=== PATIENT | male | born 1945 | race Asian ===

== ENCOUNTER → 2017-09-09 | Day surgery (SDC) | payer OTHER ==
[~2017-09-09] MED LIST: ASPIRIN 81 MG CHEWABLE TAB PO ONE; ATROPINE SULFATE 1 MG/10 ML SYR IVP ONE; DABIGATRAN ETEXILATE MESYL 150 MG CAP PO SCH; LIDOCAINE 1% 5 ML SDV ONE; NS 1,000 ML IV ONE; NS 500 ML IV ONE; PROPOFOL 200 MG/20 ML VIAL ONE
--- NOTE | 2017-09-09 11:12 | CPEKG ---
Heart Rate: 113 RR Interval: 531 P-R Interval: 136 QRSD Interval: 116 QT Interval: 368 QTC Interval: 505 P [place]: 114 QRS [place]: -62 T Wave [place]: 64 EKG Severity - ABNORMAL ECG - EKG Impression: SINUS TACHYCARDIA EKG Impression: VENTRICULAR PREMATURE COMPLEX EKG Impression: NONSPECIFIC IVCD WITH LAD EKG Impression: INFERIOR INFARCT, OLD Electronically Signed By: Karthikeyan Smith 09-Sep-2017 15:24:41
[2017-09-09 11:25] LABS: % IMMATURE GRANULYOCYTES 0.1 % (0.0-1.1); ABSOLUTE IMMATURE GRANULOCYTES 0.01 10^3/uL (0.00-0.10); ADD DIFF? NO; ADD MORPH? NO; ADD SCAN? NO; ATYPICAL LYMPHOCYTE FLAG 0 (0-99); FRAGMENT RBC FLAG 0 (0-99); HEMATOCRIT 48.1 % (40.0-51.0); HEMOGLOBIN 17.4 g/dL (13.7-17.5); LEFT SHIFT FLG 0 (0-99); LIPEMIA HEMOLYSIS FLAG 90 (0-99); MEAN CELL HEMOGLOBIN 31.6 pg (27.9-34.1); MEAN CELL HEMOGLOBIN CONCENTR. 36.2 g/dL (32.4-36.7); MEAN CELL VOLUME 87.5 fL (81.5-99.8); MEAN PLATELET VOLUME 10.2 fL (8.7-11.7); PLATELET CLUMPS FLAG 0 (0-99); PLATELET COUNT 192 10^3/uL (150-400); RED CELL DISTRIBUTION WIDTH 12.8 % (11.5-15.2)
[2017-09-09 11:44] LABS: INR 1.13 (0.83-1.16); PROTIME(PATIENT) 14.4 SEC (12.0-15.0)
[2017-09-09 11:45] LABS: APTT 39.4 SEC (23.0-38.0)
[2017-09-09 12:04] LABS: ANION GAP 15 mEq/L (8-16); CALCIUM 10.1 mg/dL (8.5-10.4); CARBON DIOXIDE 20 mEq/l (22-31); CHLORIDE 103 mEq/L (97-110); CREATININE 1.2 mg/dL (0.7-1.3); GLOMERULAR FILTRATION RATE 59; GLUCOSE 94 mg/dL (70-100); POTASSIUM 4.2 mEq/L (3.5-5.2); SODIUM 138 mEq/L (134-144)
[2017-09-09 12:15] LABS: CREATINE KINASE-MB FRACTION 1.41 ng/mL (0.00-3.19); TROPONIN I 0.018 ng/mL (0.000-0.034)
--- NOTE | 2017-09-09 12:42 | CPEKG ---
Heart Rate: 107 RR Interval: 561 P-R Interval: 204 QRSD Interval: 94 QT Interval: 356 QTC Interval: 475 P [place]: 252 QRS [place]: -13 T Wave [place]: -41 EKG Severity - ABNORMAL ECG - EKG Impression: SINUS OR ECTOPIC ATRIAL TACHYCARDIA EKG Impression: MULTIPLE VENTRICULAR PREMATURE COMPLEXES EKG Impression: PROBABLE POSTERIOR INFARCT EKG Impression: REPOL ABNRM SUGGESTS ISCHEMIA, DIFFUSE LEADS Electronically Signed By: Karthikeyan Smith 09-Sep-2017 15:24:41
--- NOTE | 2017-09-09 12:51 | EDPHY ---
H & P Time Seen by Provider: 09/09/17 11:13 HPI/ROS: HPI Palpitations. 72-year-old male by private vehicle. He comes from the office of his coating inspector, Dr. Alonso Torres, with a history of intermittent atrial flutter and the need for cardioversion. I did not speak with Dr. Torres or his staff. The patient tells me he was sent here for cardioversion. He reports that he took 1 Pradaxa tablet last night. He reports that he has been in atrial flutter since 5:30 p.m. yesterday. He reports that his coating inspector Dr. Rey has prescribed him prn Pradaxa to be taken when he goes into flutter. He is not on consistent anticoagulation. He denies any associated chest pain or shortness of breath. He describes feeling his heart beating fast. ROS: Constitutional: No fever, no chills. No weakness. Eyes: No discharge. No changes in vision. ENT: No sore throat. No nasal congestion or rhinorrhea. Respiratory: No cough. No shortness of breath. Cardiac: No chest pain, As above. Gastrointestinal: No abdominal pain, no vomiting, no diarrhea. Genitourinary: No hematuria. No dysuria or increased frequency with urination. Musculoskeletal: No back pain. No neck pain. No myalgias or arthralgias. Skin: No rashes. Neurological: No headache. No focal weakness or altered sensation. Past medical history: Atrial flutter. As above. Social history: Nonsmoker. Here with his daughter. No alcohol. Physical Exam: General Appearance: Alert, no distress. This patient is responding to questions appropriately and in full sentences. This patient appears well- hydrated and well-nourished. Eyes: Pupils equal and round no pallor or injection. No lid edema, erythema or injection. Respiratory: There are no retractions, lungs are clear to auscultation with good air movement bilaterally. Cardiovascular: Regular rate and rhythm. Regular mild tachycardia. No murmur appreciated. Neurological: Motor sensory function is grossly intact. Cranial nerves are normal. Gait is normal. Skin: Warm and dry, no rashes. Musculoskeletal: Neck is supple and nontender. Extremities are symmetrical. All joints range without pain or impingement. Psychiatric: No agitation. No depression. Database: EKG: EKG 1. Time 11:10 a.m.: Significant for a sinus tachycardia versus atrial flutter versus ectopic atrial tachycardia. Ventricular rate of 113. There is a nonspecific interventricular conduction delay. Left axis deviation noted. EKG 2. Time 12:40 p.m. p.m.: As above. Multiple PVCs. Ventricular rate of 107. Imaging: Procedures: Emergency department course: Vital signs reviewed. Patient very adamant that he be cardioverting the emergency department. He is angry that there was no communication from Dr. Torres 's office and is demanding to be cardio averted now in the emergency department. I explained to him that I wanted to get a trans esophageal echocardiogram before I considered cardioversion. I spoke with coating inspector Dr. Eleonora Vaughn. She graciously saw this patient in our emergency department. She will admit this patient for transesophageal echocardiogram followed by cardioversion. The patient's remaining emergency department course under my care has been uneventful. He was admitted for the noted procedures under the care of Dr. Eleonora Vaughn in stable condition. Differential Diagnosis: The differential diagnosis on this patient includes but is not limited to atrial flutter versus sinus tachycardia versus ectopic atrial tachycardia. Pulmonary embolism, acute coronary syndrome, hyperthyroid unlikely. This represents a partial list of diagnoses considered. These considerations are based on history, physical exam, past history, reassessment and diagnostic testing. Smoking Status: Never smoked Constitutional: Initial Vital Signs Temperature (C) 36.8 C 09/09/17 10:56 Heart Rate 114 H 09/09/17 10:56 Respiratory Rate 18 09/09/17 10:56 Blood Pressure 126/99 H 09/09/17 10:56 O2 Sat (%) 94 09/09/17 10:56 O2 Delivery Mode Room Air Allergies/Adverse Reactions: No Known Allergies Allergy (Verified 09/09/17 10:55) Home Medications: Medication Instructions Recorded Aspirin [Aspirin 81mg (*)] 81 mg PO DAILY 30 Days #30 tab 09/09/17 Dabigatran Etexilate Mesyl 150 mg PO BID #60 09/09/17 [Pradaxa 150 MG (*)] Rosuvastatin Calcium [Crestor 40mg 40 mg PO 09/09/17 (*)] VITAMIN D 1,000 units PO BID 09/09/17 Medical Decision Making - Data Points Laboratory Results: Laboratory Results 09/09/17 11:12 09/09/17 11:12 Medications Given: Discontinued Medications Aspirin (Aspirin) 324 mg PO EDNOW ONE Stop: 09/09/17 11:15 Last Admin: 09/09/17 11:28 Dose: Not Given Sodium Chloride (Ns) 500 mls @ 1,000 mls/hr IV EDNOW ONE PRN Reason: Protocol Stop: 09/09/17 11:43 Last Admin: 09/09/17 11:26 Dose: 500 mls Departure - Departure Disposition: To OP Cath/Surgery Clinical Impression: Atrial flutter Condition: Good
[2017-09-09 13:11] VITALS: TEMP 98.6
[2017-09-09 13:35] VITALS: PULSE 109; O2SAT 95
[2017-09-09 13:51] VITALS: BP 126/101; RESP 18
--- NOTE | 2017-09-09 13:58 | PDHPUP ---
History & Physical Update H&P update statement: This history and physical update is based on an assessment of the patient which was completed after admission or registration (within 24 hours), but prior to the surgery/procedure. H&P update: H&P reviewed & patient examined, no change in patient's condition since H&P completed
--- NOTE | 2017-09-09 16:38 | PDANEPAE ---
ANE History of Present Illness A-fib ANE Past Medical History - Pulmonary History Hx Sleep Apnea: No ANE Review of Systems Review of Systems: ANE Patient History - Allergies Allergies/Adverse Reactions: No Known Allergies Allergy (Verified 09/09/17 10:55) - Home Medications Home medications: home medication list seen and reviewed Home Medications: Aspirin [Aspirin 325 mg (*)] 325 mg PO DAILY 09/09/17 [Last Taken 09/09/17 06:00 ] Dabigatran Etexilate Mesyl [Pradaxa 150 MG (*)] 150 mg PO PRN 09/09/17 [Last Taken 09/09/17 06:00] Rosuvastatin Calcium [Crestor 40mg (*)] 40 mg PO 09/09/17 [Last Taken 09/08/17 18:00] VITAMIN D 1,000 units PO BID 09/09/17 [Last Taken 09/08/17 18:00] - Smoking Hx Smoking Status: Never smoked ANE Labs/Vital Signs - Labs Result Diagrams: 09/09/17 11:12 09/09/17 11:12 - Vital Signs Blood Pressure: 126/101 Heart Rate: 109 Respiratory Rate: 18 O2 Sat (%): 95 Height: 177.8 cm Weight: 81.647 kg ANE Physical Exam - Airway Neck exam: FROM Mallampati Score: Class 2 Mouth exam: normal dental/mouth exam - Pulmonary Pulmonary: no respiratory distress - Cardiovascular Cardiovascular: irregularly irregular - ASA Status ASA Status: III ANE Anesthesia Plan Anesthesia Plan: MAC
--- NOTE | 2017-09-09 17:03 | PDTEE1 ---
CHRISTINE Cardioversion Procedure Procedure: electrical cardioversion, transesophageal echo Indications: other (atrial flutter) Procedural Details: Pads were placed in anterior-posterior position. CHRISTINE probe was advanced and standard images obtained. There is no evidence of left atrial or left atrial appendage thrombus. Synchronized cardioversion attempt #1: 200J Conclusions: successful CHRISTINE cardioversion Patient Problems: Problems Problem Status Onset Atrial flutter Acute
--- NOTE | 2017-09-09 17:07 | POSTANESTH ---
Post Anesthetic Evaluation Cardiovascular Status: Similar to Pre-Op Cond Respiratory Status: Similar to Pre-op Cond. Level of Consciousness/Mental Status: Alert and Oriented Pain Control: Adequate, Prn Tx Ordered Nausea/Vomiting Control: Adequate, Prn Tx Ordered Complications Possibly Related to Anesthesia: None Noted
--- NOTE | 2017-09-09 17:12 | CPEKG ---
Heart Rate: 81 RR Interval: 741 P-R Interval: 284 QRSD Interval: 96 QT Interval: 412 QTC Interval: 479 P [place]: 60 QRS [place]: -4 T Wave [place]: 24 EKG Severity - ABNORMAL ECG - EKG Impression: SINUS RHYTHM EKG Impression: FIRST DEGREE AV BLOCK EKG Impression: INFERIOR INFARCT, AGE INDETERMINATE EKG Impression: BORDERLINE PROLONGED QT INTERVAL EKG Impression: SINUS RHYTHM WITH FIRST DEGREE AVB HAS REPLACED PRIOR ECG FINDING OF EITHER EKG Impression: ATRIAL TACHYCARDIA ( READ) OR ATRIAL FLUTTER (SUSPECTED). Electronically Signed By: Nilesh Felix 10-Sep-2017 14:01:01
--- NOTE | 2017-09-09 17:38 | ECHO ---
[email or web address] [address] [address] Main: [phone] Fax: Transesophageal Echocardiography Name: DARCI ROBERSON MR#: [id number] Study Date: 09/09/2017 Study Time: 04:33 PM Date of : 1945 Age: 72 year(s) Height: ( ) Weight: ( ) BSA: Gender: Male Examination: CHRISTINE Indication: Image Quality: Contrast: Requested by: Eleonora Vaughn Heart Rate: Rhythm: BP: / Procedure Staff Stone Repairer: Violeta Conklin Reading Physician: Eleonora Vaughn Requesting Provider: CHRISTINE Exam Details Measurements: Chambers Valvular Assessment AV/MV Valvular Assessment TV/PV Normal Normal Normal Name Value Range Name Value Range Name Value Range Additional Measurements: Findings: Left Ventricle: Normal global systolic LV function. Left Atrium: An agitated saline study was performed and was negative for intracardiac shunting. Left Atrial Appendage: No thrombus in left appendage. Mitral Valve: Moderate mitral valve regurgitation is present. Fixed posterior mitral leaflet from prior surgery.. Aortic Valve: The aortic valve is tri-leaflet. Trivial aortic valve regurgitation. Tricuspid Valve: Mild tricuspid regurgitation is present. Aorta: There is Grade 2 aorta plaque. Patient: DARCI ROBERSON Study Date: 09/09/2017 Page 1 of 2 04:33 PM l1n (No Signature Object) Patient: DARCI ROBERSON Study Date: 09/09/2017 Page 2 of 2 04:33 PM [id number]
--- NOTE | 2017-09-09 21:23 | GCON ---
[f rep st] CONSULTATION CARDIOLOGY CONSULTATION DATE OF CONSULTATION: 09/09/2017 PRIMARY BILL DISTRIBUTOR: Dr. Rico Torres CHIEF COMPLAINT: Atrial flutter. HISTORY OF PRESENT ILLNESS: The patient is a 72-year-old male with a history of coronary disease sta tus post remote PCI, the last in 1997. He has a history of mitral valve repair at the [facility] in 2000. He has had about 3 or 4 episodes of atrial flutter, previously treated with cardioversion , occurring about once every 2 years. He is not chronically anticoagulated. Other history includes dy slipidemia. I have requested records from Dr. Torres's office but have not yet had these for review. Yesterday evening, he started to feel that he might be in atrial flutter. He feels weak and palpitati ons. No presyncope or syncope. No angina or dyspnea. He took a Pradaxa and then presented to Dr. Torres 's office this morning. There, he was instructed to come to the ER for further evaluation and managem ent. He is very anxious about getting his arrhythmia corrected. REVIEW OF SYSTEMS: A full 10-point review of systems is performed and is otherwise negative except t hat which is outlined in the history of present illness. He has been traveling recently to [place]. ALLERGIES: No known drug allergies. PAST MEDICAL HISTORY: 1. Coronary artery disease with history of PCI. Coronary anatomy and stenting are not known. 2. Status post mitral valve repair at the [facility] in 2001. 3. History of atrial flutter. 4. Dyslipidemia. OUTPATIENT MEDICATIONS: 1. Crestor 40 mg daily. 2. Aspirin 325 mg daily. 3. Vitamin D. 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 He is . His da ughter is at the bedside. He drinks alcohol minimally and does not smoke cigarettes. FAMILY HISTORY: Negative for coronary artery disease or arrhythmia. PHYSICAL EXAMINATION: VITAL SIGNS: Blood pressure 126/101. Heart rate has varied between 109 and 130 . Respiratory rate is 18. Oxygen saturation 95% on room air. GENERAL: Well-appearing older male in no acute distress. HEENT: Sclerae clear and free of jaundice. Mucous members are moist. CARDIOVASCULAR: JVP less than 10. Regular tachycardic rhythm with occasional change in rate. 2/6 early systolic murm ur at the apex. No S3. LUNGS: Clear to auscultation bilaterally without wheezes, rhonchi, rales. ABDO MEN: Soft, nontender, nondistended without bruits, masses or hepatosplenomegaly. EXTREMITIES: Warm an d well-perfused without cyanosis, clubbing or edema. NEUROLOGIC: Alert and oriented x3 without gross focal neurologic deficits. LABORATORY DATA: White count 9.77 with a slight left shift. Hematocrit 48. Platelets are 192. INR 1. 13. Basic metabolic panel is normal except for CO2 of 20, magnesium 1.7. Troponin is negative. EKG, personally reviewed by me, shows atrial flutter versus 2:1 atrial tachycardia. Occasional PVCs. No ischemia. ASSESSMENT AND PLAN: A 72-year-old male with a past history of atrial flutter, now presents with eit her 2:1 atrial tachycardia or 2:1 atrial flutter. He is symptomatic with this, but not hemodynamicall y unstable. 1. Atrial flutter: Risks, benefits, alternatives of transesophageal echocardiography-guided cardiove rsion were discussed with the patient. He agrees to proceed. He will require Pradaxa 150 mg twice florencia ly for at least 1 month post cardioversion. He understands and is willing to continue Pradaxa post pr ocedure. This will be arranged with Anesthesia this afternoon. The last time he ate or drank anything was 5 a.m. this morning. He has infrequent episodes of this arrhythmia, but I do think he would bene fit from electrophysiology evaluation for either consideration of ablation or antiarrhythmic drug the rapy. I will defer this to his primary packaging line operator. 2. Mitral valve repair: He has mitral regurgitation on exam. We will better visualize this with ovalle sesophageal echocardiography. 3. Dyslipidemia: Continue Crestor. The patient will likely be discharged after his transesophageal echocardiography cardioversion. /[id number]/MODL
== END | disposition home or self-care (01) ==
LOC: FCATH 13:26
PROVIDERS: ATTEND Internal Medicine Cardiovascular Disease
DX: I48.92 Unspecified atrial flutter (principal); I34.0 Nonrheumatic mitral (valve) insufficiency; I25.10 Atherosclerotic heart disease of native coronary artery without angina pectoris; E78.5 Hyperlipidemia, unspecified; Z95.5 Presence of coronary angioplasty implant and graft; Z95.2 Presence of prosthetic heart valve; Z79.82 Long term (current) use of aspirin
CPT/HCPCS: J2704

== ENCOUNTER 2017-11-19 10:01 | Day surgery (SDC) | payer OTHER ==
[2017-11-19] MEDS ORDERED: MIDAZOLAM 2 MG/2 ML VIAL IVP ONE (10:09)
[2017-11-19] MEDS ORDERED: NS 500 ML IV ONE (10:09)
[2017-11-19] MEDS ORDERED: fentaNYL 100 MCG/2 ML INJ IVP ONE (10:09)
[2017-11-19] MEDS ORDERED: ATROPINE SULFATE 1 MG/10 ML SYR IVP ONE (10:09)
--- NOTE | 2017-11-19 10:24 | CPEKG ---
Heart Rate: 63 RR Interval: 952 QRSD Interval: 98 QT Interval: 456 QTC Interval: 467 QRS [place]: 32 T Wave [place]: 11 EKG Severity - ABNORMAL ECG - EKG Impression: A-FLUTTER W/ PREDOM 4:1 AV BLOCK, A-RATE 254 Electronically Signed By: Yo Pascal 19-Nov-2017 13:12:39
[2017-11-19 10:51] LABS: INR 1.15 (0.83-1.16); PROTIME(PATIENT) 14.9 SEC (12.0-15.0)
[2017-11-19] MEDS ORDERED: PROPOFOL 200 MG/20 ML VIAL ONE (10:55)
--- NOTE | 2017-11-19 11:50 | CPEKG ---
Heart Rate: 63 RR Interval: 952 P-R Interval: 332 QRSD Interval: 94 QT Interval: 444 QTC Interval: 455 P [place]: 62 QRS [place]: 22 T Wave [place]: 4 EKG Severity - ABNORMAL ECG - EKG Impression: SINUS RHYTHM EKG Impression: MULTIPLE VENTRICULAR PREMATURE COMPLEXES EKG Impression: FIRST DEGREE AV BLOCK Electronically Signed By: Yo Pascal 19-Nov-2017 13:12:49
--- NOTE | 2017-11-19 12:26 | EPPROC ---
Electrophysiology Procedure Note: Procedure: CV Indication: Symptomatic Aflutter Procedure: Risks and benefits of OAC such as Pradaxa discussed. Pt agreed to take Pradaxa. Pt sedated by anesthesia staff. CHRISTINE performed and LA clot ruled out. Pt was then CV using synchronized DCCV at 200J. Pt converted to AF briefly and then to SR. Conclusion: Successful CV. Plan: Change Effient to Plavix as discussed over the phone with Dr Rey. Start Pradaxa 150mg po bid. May stop ASA. F/U with Dr Rey. Patient Problems: Problems Problem Status Onset Atrial flutter Acute
== END 2017-11-19 12:40 | disposition home or self-care (01) ==
LOC: FCATH 10:01
PROVIDERS: ATTEND Internal Medicine Cardiovascular Disease
PROC: B245ZZ4 Ultrasonography of Left Heart, Transesophageal (ICD-10-PCS; principal; 2017-11-19)
PROC: 5A2204Z Restoration of Cardiac Rhythm, Single (ICD-10-PCS; principal; 2017-11-19)
DX: I48.92 Unspecified atrial flutter (principal)
CPT/HCPCS: J2704